=== PATIENT | male | born 1960 | race Caucasian/White ===

== ENCOUNTER 2024-09-12 07:25 | Outpatient (RCR) | payer BC, SELFPAY ==
--- NOTE | 2024-09-12 08:31 | PT.OPEX ---
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 He has full ROM, good strength, able to amb no device, drives. Pt lives with in a multi level home with rails, will have ramped entry by surgery date. Pt was instructed in TKA ex program ( quad sets, ham sets, ankle pumps, heel slides, SAQ, SLR, seated knee flex/ext and hamstring stretches) per protocol to be practiced pre- operatively and for improved learning post-operatively. Pt was instructed in hospital post-op progression in PT, safety, fall prevention. Pt was instructed in positioning in chair, use of ice/polar care, bed, transfer safety, gt safety with walker, stairs, car transfers and outpatient therapy progression.Pt also was instructed in showering, dressing, toilet safety, equipment use. Recommended toilet safety frame, leg lift or strap, shower chair, grab bar for shower. He will progress to OP PT after hospital stay at [facility]. Goals met, pt to dc. Primary Functional Limitations limited amb distance and standing Plan of Care Rehabilitation Potential Good Physical Therapy Goals 1. Within this session: Pt will verbalize understanding of pre-op/post-op safety, mobility and exercises with home program issued and pt returning for ongoing therapy after TKA replacement. Coordination/Communication With Referral Source,Patient Caregiver Treatment Plan/Direct Interventions Gait Training,Manual Therapy, Neuromuscular Re-ed,Self-Care/ Home Management,Therapeutic Activities,Therapeutic Exercises Frequency/Duration 1x Patient Will Be Discharged From Therapy Completion of LTG(s),Skills Plateau,Independent w/HEP, Independently Progressing Evaluation Billing Untimed Code Treatment Minutes 10 PT Eval No Charge Yes Complexity Low Certification Information Initial Certification Date 09/12/24 Ending Certification Date 12/10/24 Provider Signature Required Yes Provider Signature Shows Agreement With POC & Medical Necessity Physician NPI Number Write NPI# Here Physician Comment/Change : Physician Signature & Date Requested Please Sign/Date Here
== END 2024-09-12 14:16 | disposition home or self-care (01) ==
PROVIDERS: Visit Provider Orthopaedic Surgery
DX: M17.0 Bilateral primary osteoarthritis of knee (principal); Z96.653 Presence of artificial knee joint, bilateral; M79.605 Pain in left leg; M79.604 Pain in right leg; Z51.89 Encounter for other specified aftercare
CPT/HCPCS: 97110; 97161

== ENCOUNTER 2024-09-19 16:20 | Inpatient (IN) | payer BC, SELFPAY ==
[2024-09-18] VITALS (25 sets, daily range): BP systolic 97–156; BP diastolic 62–124; PULSE 53–85; RESP 11–18; TEMP 35.8–36.9; O2SAT 89–197; BMI 35.9
--- OUTSIDE RECORDS SUMMARY | 2024-09-18 08:52 | XMS_ITS | Patient Health Record ---
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 Name Role Phone Saeid Love Primary Care Provider [facility] Anahy BURNHAM Unavailable Unavailable Allergies No Known Allergies Reason For Referral No Information Medications Medication SIG (Take, Route, Fr equency, Duration) Notes Start Date End Date Status Pregabalin 25 MG 1 capsule Orally Twi ce a day (then increase to 50mg twice a day) for 15 days 09/20/2022 Active Pregabalin 50 MG 1 capsule Orally (to start on 10/05/22) Twice a day for 15 days 09/20/2022 Active Social History Tobacco Use: Social History Observation Description Date Details (start date - stop date) Never Smoker NA - NA Tobacco Use/Smoking: Question Answer Notes Are you a nonsmoker Alcohol Screen Question Answer Notes Did you have a drink containing alcohol in the p ast year? No Points 0 Interpretation Negative Problems Problem Type SNOMED Code ICD Code Onset Dates Problem Status W/U Status Risk Notes Problem Chronic pain (03179949) Other chronic pain (G89.29) Active confirmed Problem Pain in left foot (216907299380 107) Pain in left foot (M79.672) Active confirmed Plan Of Treatment No Information Insurance Providers Payer Name Payer Address Payer Phone Subscriber Number Group Number Insured Name Patient Relationship to Insured Coverage Start Date Coverage End Date BCBS [place] [address] [address] [place] [address] [phone] [id number] Monse Hawk Spouse - patient is the spouse of the insured Medical (General) History Medical History History ICD Code Claustrophobia Surgical History Surgery Date(Month/Year) Left knee Bariatric surgery cholecystectomy
--- OUTSIDE RECORDS SUMMARY | 2024-09-18 08:52 | XMS_ITS | Data Portability ---
Author Organization [facility]TWAN [facility] [facility] Address [address] [place] [address] Assessment No assessment recorded. Plan of Treatment Reminders Order Date Submit Date Provider Last Modified By Organization Details Last Modified Time Details Appointments None record ed. Lab None record ed. Referral None record ed. Procedures None record ed. Surgeries None record ed. Imaging None record ed. Medication Orders None record ed. Patient TargetsNo targets recorded. Patient Instructions Encounter Date Encounter Id Patient Instructions Last Modified By Organization Details Last Modified Time 04/25/2019 [id number] Reviewed New Patient bariatric healthy eating plan information and eating pattern with patient. Topics discussed were eating 5-6 small meals, start eating within an hour of waking, eat every 3-4 hours, slow down and chew well to pureed consistency, avoid liquids 30min before and after meals, adequate water intake 64-80oz daily, no caffeine, and no carbonated beverages. Reviewed protein powder recs, vitamin/mineral supplement recs, support group times/dates, water and exercise guidelines pre and post op. Encouraged patient to start practicing dietary guidelines to help ease the transition into bariatric lifestyle. Pt verbalized understanding of topics discussed and compliance is expected. Also reviewed the 2 week pre op liquid diet and post op step by step and back to the basics diet information with patient. Advised patient not to abrams diet progression post surgery. Phone consult - Pt is self pay and lives in [facility] Not available 04/25/2019 11:57:26 Pt is a 58year o ld male, here for a nutrition consult prior to weight loss surgery. He is interested in the sleeve gastrectomy surgery at [facility] -self pay. Motivators for weight loss surgery as stated by the patient: become more healthy reverse diabetes reduce blood pressure, lose weight and reduce his pain and be able to have knee surgery. Diet Hx: patient has tried low carb high protein diet, weight watchers, slim fast, diet pills RX and OTC and has seen some weight loss with the plans, but has gained the weight back once he goes off the diet. Contributors to wt gain over the years as stated by pt: he states he was unable to exercise due to severe gout and his lack of exercise, unhealthy food choices and soda. Large portions: yes - patient states he eats big meals Inconsistent meal patterns: He eats regular meals and snacks. Frequent snacking: he states he has a couple snacks a day Frequent selection of high fat foods - he has high fat foods at fast food or restaurants 3x/week. Overconsumption of CHO foods (rice, pasta, breads, potatoes) - he states that he does have potatoes, chips and sandwiches and/or bread daily/often Consumption of sweetened beverages - he drinks juice but has given up sugar drinks since he learned he was Diabetic Typical Diet: patient follows mostly a regular diet at this time Food Allergies/Sensitivi ties: none Meals: 3 a day Snacks: 1-2 a day Beverages: diet tea, diet soda, 12-16oz juice along with around 16+oz water daily Alcohol: none Nicotine: none Meal Preparation: at home by his or himself Meals away from home: 3x/week at restaurant or fast food Patient sleeps about 3-4 hours at night a couple 10-15min naps daily. He rates his stress level as low 24 Hr Diet Recall: (Breakfast): 1.5eggs 2 sausage and 12-16oz juice OR an Botswanan muffin sandwich with egg cheese and pork sausage with juice (Snack): none (Lunch): caned soup with a sandwich turkey and cheese on white with diet tea OR smaller size double cheeseburger with small fries and diet soda (Snack): none (Dinner): grilled pork or salmon with steamed vegetable or salad sometimes with tater tots and diet tea (Snack): popcorn chips or fruit smoothie OTC Medications and Supplements: none Current Exercise/Physical Activity: He is not currently exercising. Advised patient to begin an exercise program and do it most every day for at least 30min to build a habit of regular exercise prior to weight loss surgery. Advised him to be active daily to see even better weight reduction. He reports he is very limited due to his torn meniscus and requires knee surgery but has access to a pool and will start with pool walking and strength training activities * Patient is Diabetic on metformin and glipizide. Advised patient to speak to his PCP about potential medication changes with diet changes. Also recommended he monitor his glucose very closely as he begins the bariatric healthy eating plan. Spent 98 minutes on phone consult today joanne Not available 04/25/2019 12:07:15 10/08/2019 [id number] Reviewed Down to the Basics information pack with patient Discussed the goal to get in 90g of protein daily and advised patient to choose very lean and lean meat options and avoid medium and high fat options. Discussed types of fats and encouraged patient to choose monounsaturated and omega-3 fats and avoid trans-fat and limit saturated/solid fats and to limit to 2 fat choices/day. Spoke about carbohydrate being sugar and that patient should be limiting to 30g daily - spread out through the meals/snacks and not eaten all at one time. Suggested patient choose starchy vegetable like sweet potato, beans, peas, lentils, or butternut squash as the carb choice at meals (1/4c). Spoke about fruit and that some carb should come from fruit and to have it along with protein and not alone. Also reminded patient to use dairy alternative like cashew, almond, or coconut milk and suggested an option to go back to making a protein shake to be able to get enough protein. Discussed reading labels and helped patient know how to find protein and carbs on the label along with how to check on the serving size and that all the numbers on the label are in only 1 serving. Spoke about hidden carbs in sauces and condiments and reminded patient to avoid these added sugars to aid in glucose control. Recommended patient start journaling to keep track better of protein, carb and fluid intake. Advised patient to work on exercising daily for 30 min and to add toning exercises. Patient verbalizes understanding. joanne Not available 10/08/2019 09:52:14 Martínez phone confrence for 2 month post op apt for nutrition evaluation and Down to the basics information Patient had a laparoscopic sleeve gastrectomy on 08/09/19. He has lost 40# since his preop weigh in. He is tolerating food most of the time without issue but does report he is not getting in enough protein at this time. Example of current intake B - Premier shake OR home made shake with fruit S - none or some vegetables L - tomato soup from a can S - 1/2 peanut butter sandwich D - 3-4oz fish with a few bites of broccoli S - sugar free popsicle Encouraged patient to work toward more consistency and balance in his bariatric healthy eating plan and to focus on nutrient dense foods for meals and snacks and to increase protein to goal of 90g. Advised him to drink at least 64oz water - patient states he is getting in that much water. Advised patient to carry water and sip all day to meet fluid goal and to stay hydrated for better digestion. Spoke about making sure he combines protein with vegetable and a small amount of complex carb at meals to help energy level. Advised him to get in more variety in low carb vegetables too. His goals are to eat within an hour of waking and to have a meal or a protein snack every 3-4 hours. Advised each meal and snack need to include protein to be able to meet goal. Suggested he use the protein powder in recipes/foods/drink s or use premade protein shakes if he cannot take in enough protein in food alone. He reports he is NOT taking all V/M supplements as directed from program and is unsure of which ones he needs. I emailed him a copy of the vitamin sheet so that he can be certain his intake is to goal and I have advised him to take these daily as not taking them can result in deficiency and to have levels checked regularly at PCP visits. Remind him to eat consistent meals (ie don? t? skip), chew well, avoid liquids with meals, focus on protein (get 90g total) and vegetables at meals and limit carb to 30g daily. He has not been able to exercise. He states he needs a total knee replacement and cannot walk 30 min. Encouraged him to start with 10 min and also incorporate chair exercises to meet the goal for exercise and to continue to work to be active daily for best weight loss results. Spent 48 minutes in phone consult today. [facility] Not available 10/08/2019 09:57:39 Reason for Referral None Reported. Results Created Date Observation Date Name Description Value Unit Range Abnormal Flag Note LastModifiedBy Organization Detail LastModifiedTime Result Notes None recorded. Problems Name Problem SNOMED Code Status Onset Date Resolution Date Notes Provider Name and Address Organization Details Recorded Time Diabetes mellitus 27718401 Active 2018 Soumya Owusu ([facility], [place] 9 14:04:00 Hypertensive disorder 01816576 Active 2018 Soumya wOusu ([facility] null, [place] 9 14:04:22 Problem Notes None recorded. Medical Equipment None Reported. Allergies No known drug allergies Medications Name Sig Start Date Stop Date Status Note LastModified by Organization Details LastModified Time amoxicillin 500 mg capsule 08/08 completed Not Available Not Available Not Available metformin 500 mg tablet active Not Available Not Available Not Available doxycycline hyclate 100 mg capsule 08/08 completed Not Available Not Available Not Available lisinopril 20 mg-hydrochlo rothiazide 12.5 mg tablet active Not Available Not Available Not Available pravastatin 40 mg tablet active Not Available Not Available Not Available omeprazole 40 mg capsule,luz marina yed release Take 1 capsule every day by oral route. 08/08 completed Not Available Not Available Not Available amoxicillin 875 mg tablet 08/08 completed Not Available Not Available Not Available Zofran ODT 4 mg disintegrati ng tablet Take 1 tablet 3 times a day by oral route as needed. 2018 active Not Available Not Available Not Avai lable hydrocodone 7.5 mg-acetamino phen 325 mg tablet Take 1 tablet every 6 hours by oral route. active Not Available Not Available No t Available montelukast 10 mg tablet 08/08 completed Not Available Not Available Not Available allopurinol 300 mg tablet active Not Available Not Available Not Available glipizide 5 mg tablet active Not Available Not Available No t Available Reglan 5 mg tablet Take 1 tablet 4 times a day by oral route before meals. 2018 active Not Available Not Available Not Avai lable ProAir HFA 90 mcg/actuatio n aerosol inhaler 08/08 completed Not Available Not Available Not Available Vitals Date Recorded Body height Body mass index (BMI) Body weight Provider Name and Address Organization Details Last Updated DateTime 04/25/2019 182.88 cm 56.3 kg/m2 552346.[address] [facility] [address], [place], [address], [facility] 04/25/2019 11:54:08 Date Recorded Body height Body mass index (BMI) Body weight Heart rate Systolic blood pressure Diastolic blood pressure Provider Name and Address Organization Details Last Updated DateTime 9 182.88 cm 54.5 kg/m2 641426. 13 g 118 /min 120 mm[Hg] 72 mm[Hg] Soumya Owusu ([facility]) [facility] 9 14:02:16 Date Recorded Body height Body mass index (BMI) Body weight Provider Name and Address Organization Details Last Updated DateTime 10/08/2019 182.88 cm 49.1 kg/m2 219619.[address] [facility] [address], [place], [address], [facility] 10/08/2019 09:43:12 Social History Question Answer Notes LastModified by Organizat ion Details LastModified Time Tobacco Status Never User [email or web address] Informatio n not available 08/08/2019 Sex: Unknown Functional Status None recorded. Mental Status None recorded. Family History Nothing Reported. Medical History No medical history recorded. Past Encounters Encounter ID Performer Location Encounter Start Date Encounter Closed Date Diagnosis/Indication Diagnosis SNOMED-CT Code Diagnosis ICD10 Code [id number] [address] [facility] [address] [place] [address] 04/25/2019 11:14:02 04/25/2019 11:45:55 Morbid obesity 575753360 E66.01 [id number] Chriss Thomas nd, MD [facility] [address] [place] [address] 08/08/2019 13:51:42 08/08/2019 15:00:24 Morbid obesity 596745725 E66.01 Benign ess ential hypertension 1434160 I10 Type 2 maxi betes mellitus 52567022 E11.[id number] [facility] [address] [place] [address] 10/08/2019 09:05:19 10/08/2019 10:31:09 Morbid obesity 519933949 E66.01 History of bariatric surgical procedure 422499760 Z98.84 Health Concerns Section Related Observation LastModified by Organization Detai ls LastModified Time None Recorded Concern Status LastModified by Organization Details LastModified Time None Recorded Advance Directives Directive None Recorded Payers Encounter Date Sequence Insurance Name Policy Number Policy High Covered Member ID High Member ID Guarantor Name 04/25/2019 [facility] [place] Yatahey Gregg [id number] Yataheyshakira Escobedo 08/08/2019 [facility] [employer] S[employer]F [employer]Y Yatahey Gregg [id number] Yatahey Gregg 10/08/2019 [facility] [employer] SELF PAY Yatahey Gregg [id number] Yataheyshakira Escobedo Notes Date Note Type Note Provider Name a ca Address Organization Details Recorded Time 08/08/2019 text/html HPI Notes: Patient presents for bariatric consult. He denies GERD. He does not have history or family history of blood clots. He does have DM. He has lost 38#s within the last month. He has tried many diets with little to no success. This is actually the fourth time he has prepared for weight loss surgery and the second time with me, as the previous time we had to cancel him due to bronchitis. Since then he is moved to [place] and is not had bronchitis since leaving [place] Chriss Lilly MD [address] [place] [address], [place], [address], [place] 08/08/2019 15:25:49
[2024-09-18] MEDS: LACTATED RINGERS 1000 ML 1,000 ML 100 ML IV (10:00)
[2024-09-18] MEDS: SODIUM CHLORIDE 0.9 % (FLUSH) 10 ML SYRINGE IVF (10:00)
[2024-09-18] MEDS: OXYCODONE (CR) 10 MG TAB.ER.12H PO (10:05)
[2024-09-18] MEDS: ACETAMINOPHEN 500 MG TABLET 1000 MG PO ×2 (10:05→22:12)
[2024-09-18] MEDS: fentaNYL 100 MCG/2 ML inj IVP (10:35)
[2024-09-18] MEDS: MIDAZOLAM HCL 1 MG/ML inj IVP (10:35)
--- NOTE | 2024-09-18 10:51 | SUR.PREOP ---
TIME?OUT:?1035 PT/RN/MDA?VERIFICATION?OF?SURGICAL?SITE,?PROCEDURE,?AND?CONSENT OBTAINED?PRIOR?TO?INVASIVE?PROCEDURE.
--- NOTE | 2024-09-18 11:17 | P.NB_ITS ---
Nerve Block Nerve Block Time Seen by Provider: 10:37 Date Seen: 09/18/24 Type of block requested by surgeon for post-operative analgesia: adductor canal Side: left Time out performed: Yes Verification of patient name: Yes Verification of date of : Yes Site marking: site marked Name of person performing procedure: Shawn Continuous monitoring Was continuous monitoring of O2 sat, B/P, food storeroom clerk, recorded every 15 minutes?: Yes Procedure Checklist: sterile prep, needles and gloves Ultrasound guided. Images saved: Yes Medications given in 5ml increments after negative aspiration: Marcaine %: 0.25 mL: 10 Needle gauge: 20 and Exparel mL: 10 Patient tolerated procedure well: Yes Block Charges Block Charge (with Pro Fee): Femoral Nerve Use of Ultrasound Machine for Block: Yes- US Guidance/pain block
--- NOTE | 2024-09-18 11:17 | W.ANESCHARGE ---
Anesthesia Charges Start Date/Time Anesthesia Start Date: 09/18/24 Anesthesia Start Time: 10:46 Stop Date/Time Anesthesia Stop Date: 09/18/24 Anesthesia Stop Time: 15:13
--- NOTE | 2024-09-18 11:19 | P.NB_ITS ---
Nerve Block Nerve Block Time Seen by Provider: 10:39 Date Seen: 09/18/24 Type of block requested by surgeon for post-operative analgesia: adductor canal Side: right Time out performed: Yes Verification of patient name: Yes Verification of date of : Yes Site marking: site marked Name of person performing procedure: Shawn Continuous monitoring Was continuous monitoring of O2 sat, B/P, chief nurse anesthetist, recorded every 15 minutes?: Yes Procedure Checklist: sterile prep, needles and gloves Ultrasound guided. Images saved: Yes Medications given in 5ml increments after negative aspiration: Marcaine %: 0.25 mL: 10 Needle gauge: 20 and Exparel mL: 10 Patient tolerated procedure well: Yes Block Charges Block Charge (with Pro Fee): Femoral Nerve Use of Ultrasound Machine for Block: Yes- US Guidance/pain block
--- NOTE | 2024-09-18 11:19 | P.NB_ITS ---
Nerve Block Nerve Block Time Seen by Provider: 10:41 Date Seen: 09/18/24 Type of block requested by surgeon for post-operative analgesia: geniculars Side: left Time out performed: Yes Verification of patient name: Yes Verification of date of : Yes Site marking: site marked Name of person performing procedure: Shawn Continuous monitoring Was continuous monitoring of O2 sat, B/P, clinical research monitor, recorded every 15 minutes?: Yes Procedure Checklist: sterile prep, needles and gloves Ultrasound guided. Images saved: Yes Medications given in 5ml increments after negative aspiration: Marcaine %: 0.25 mL: 9 Needle gauge: 25 Patient tolerated procedure well: Yes Block Charges Block Charge (with Pro Fee): Genicular Nerve Block
--- NOTE | 2024-09-18 11:20 | P.NB_ITS ---
Nerve Block Nerve Block Time Seen by Provider: 10:43 Date Seen: 09/18/24 Type of block requested by surgeon for post-operative analgesia: geniculars Side: right Time out performed: Yes Verification of patient name: Yes Verification of date of : Yes Site marking: site marked Name of person performing procedure: Shawn Continuous monitoring Was continuous monitoring of O2 sat, B/P, behavioral health rn, recorded every 15 minutes?: Yes Procedure Checklist: sterile prep, needles and gloves Ultrasound guided. Images saved: Yes Medications given in 5ml increments after negative aspiration: Marcaine %: 0.25 mL: 9 Needle gauge: 25 Patient tolerated procedure well: Yes Block Charges Block Charge (with Pro Fee): Genicular Nerve Block
--- NOTE | 2024-09-18 15:12 | CRLHL7_ITS ---
For Patients: As a result of the Cures Act, medical imaging exams and procedure reports are released immediately into your electronic medical record. You may view this report before your referring provider. If you have questions, please contact your health care provider. INDICATION: Postoperative total knee arthroplasty TECHNIQUE: Knee radiograph 2 views left COMPARISON: 07/04/2024 FINDINGS: Bone: No acute fractures or aggressive bone lesions are identified. Joint: The patient is status post a total knee arthroplasty with patellar resurfacing. No significant knee effusion is seen. Soft tissue: Anterior subcutaneous gas and joint gas are present from recent surgery. No radiopaque foreign bodies are seen. IMPRESSION: 1. There is an unremarkable postoperative appearance of the knee arthroplasty. Dictated by: Parker Small MD @ 09/18/2024 16:14:37 (Electronically Signed)
--- NOTE | 2024-09-18 15:12 | CRLHL7_ITS ---
For Patients: As a result of the Cures Act, medical imaging exams and procedure reports are released immediately into your electronic medical record. You may view this report before your referring provider. If you have questions, please contact your health care provider. Indication: Postop TKA Technique: Two views right knee Findings/Impression: Hardware from a right total knee arthroplasty is in satisfactory position. Bone alignment is normal. No sign of acute fracture. Postop changes are within normal limits. Dictated by Carlos James MD @ 09/19/2024 11:25:17 AM (Electronically Signed)
--- NOTE | 2024-09-18 15:15 | W.ANESCHARGE ---
Anesthesia Charges Start Date/Time Anesthesia Start Date: 09/18/24 Anesthesia Start Time: 10:46 Stop Date/Time Anesthesia Stop Date: 09/18/24 Anesthesia Stop Time: 15:13
--- NOTE | 2024-09-18 15:25 | PM.ORPRC ---
Procedure Note Date of procedure: 09/18/24 Procedure: PREOPERATIVE DIAGNOSIS: Bilateral knee osteoarthritis POSTOPERATIVE DIAGNOSIS: Bilateral knee osteoarthritis NAME OF OPERATION: Bilateral total knee arthroplasty SURGEON: Chinedu Fulton MD INDUSTRIAL ECOLOGY TECHNICIAN: Jackie Chand PA-C ANESTHESIA: Spinal ESTIMATED BLOOD LOSS: 0 mL COMPLICATIONS: None SPECIMENS: None DRAINS: None PREOPERATIVE ANTIBIOTICS: Ancef 2 grams IMPLANTS: Right knee: 1. J&J Attune # 7 posterior stabilized femur 2. # 7 fixed-bearing tibia 3. # 7 posterior stabilized, 7 mm fixed-bearing polyethylene 4. 41 patella Left knee: 1. J&J Attune # 8 posterior stabilized femur 2. # 8 fixed-bearing tibia 3. # 8 posterior stabilized, 5 mm fixed-bearing polyethylene 4. 41 patella INDICATIONS: The patient is a 64-year-old with a longstanding history of severe, unrelenting bilateral knee pain secondary to end-stage (grade IV) right knee osteoarthritis. Despite appropriate nonoperative management, including activity modification, anti-inflammatories, fzqs-sza-dhzfzys pain medication, bracing, physical therapy, and injections they continue to have pain and disability. Operative intervention was offered. The risks, benefits and expected outcomes were discussed in detail. These included but were not limited to: Infection, bleeding, injury to blood vessel or nerve, venous thromboembolism. All questions were answered to their satisfaction. Use of an assistant professor of mathematics was necessary throughout the case for patient positioning and safety, soft tissue retraction, and closure. PROCEDURE: Spinal anesthesia was administered. The patient was placed supine on the operating table. The assistant professor of mathematics made sure the patient was positioned appropriately. Both lower extremities were prepped and draped in the usual sterile fashion. Right knee was approached 1st. The limb was exsanguinated with the Oscar bandage. The pneumatic tourniquet was inflated to 300 mmHg. A standard anterior incision was made with the knee in flexion. Subcutaneous dissection was sharply taken through fascial layer #1. Full-thickness medial and lateral flaps were elevated. The assistant professor of mathematics retracted the soft tissues and protected them throughout the case. A standard subvastus approach was made. The patella was subluxed. The infrapatellar fat pad was debrided. The menisci and cruciate ligaments were sharply d?brided. Marginal osteophytes were d?brided with the rongeur. The drill was used to penetrate the femoral canal. The canal was aspirated and irrigated with pulse lavage. The intramedullary femoral guide was placed for a 5-degree valgus cut, removing 10 mm off the distal femur. The saw was used to make the cut. Whitesides line and the trans epicondylar axis were marked. The femoral sizing guide was pinned onto the distal femur. Three degrees of external rotation nicely parallels the transepicondylar axis. Pins were placed for posterior referencing. The four-in-one cutting guide was pinned onto the distal femur. The anterior, posterior, and chamfer cuts were made. The assistant professor of mathematics protected the collateral ligaments. The box cutting guide was pinned. The box cuts were made. The boxed trial was placed and was an excellent fit. Drill holes for the lugs were made. Attention was then turned to the proximal tibia. The extramedullary tibial guide was placed for a neutral varus/valgus cut with 5 degrees of posterior slope, removing 2 mm based off the medial tibial surface. The assistant professor of mathematics protected the collateral ligaments and the neurovascular bundle. The saw was used to make the cut. Trial components were placed. The knee was nicely balanced in both flexion and extension. The trial components were removed. The tray was placed in appropriate rotation, parallel to our tibial cutting pins. It was pinned by the assistant professor of mathematics and the drill and the punch were used. The tray was removed. The punch was used again. We placed a bone plug in the femoral canal. Attention was then turned to the patella. [place] patellar thickness was 25 mm. The lobster claw resection guide was used with the 9.5 mm ty. The saw was used to make the cut. Drill holes were made by the assistant professor of mathematics. The trial was placed and was an excellent fit. Cancellous surfaces were irrigated with pulse lavage and thoroughly dried by the assistant professor of mathematics. We cemented the tibial component, then the femoral component. We impacted the 8 mm polyethylene onto the tibial tray. The knee was brought into full extension. We then cemented the patellar component. Excessive cement was removed. The cement was allowed to harden. The knee was taken through a range of motion and was found to be nicely balanced in both flexion and extension. The patella tracks centrally. The assistant professor of mathematics did a three minute dilute Betadine solution soak. The assistant professor of mathematics irrigated the wound with 3 liters of normal saline via pulse lavage. The assistant professor of mathematics reapproximated the extensor mechanism with #1 Vicryl in an interrupted ltunin-wx-uecin fashion. The assistant professor of mathematics then ran the extensor mechanism with a #1 PDO Stratafix. The assistant professor of mathematics closed the subcutaneous tissues with a 3-0 Stratafix and the skin with a running 3-0 Stratafix in a subcuticular fashion. Glue was used to seal the skin. The assistant professor of mathematics placed a dry dressing. The tourniquet was released. Attention was then turned to the left knee. The limb was exsanguinated with the Oscar bandage. The pneumatic tourniquet was inflated to 300 mmHg. A standard anterior incision was made with the knee in flexion. Subcutaneous dissection was sharply taken through fascial layer #1. Full-thickness medial and lateral flaps were elevated. The assistant professor of mathematics retracted the soft tissues and protected them throughout the case. A standard subvastus approach was made. The patella was subluxed. The infrapatellar fat pad was debrided. The menisci and cruciate ligaments were sharply d?brided. Marginal osteophytes were d?brided with the rongeur. The drill was used to penetrate the femoral canal. The canal was aspirated and irrigated with pulse lavage. The intramedullary femoral guide was placed for a 5-degree valgus cut, removing 10 mm off the distal femur. The saw was used to make the cut. Whitesides line and the trans epicondylar axis were marked. The femoral sizing guide was pinned onto the distal femur. Three degrees of external rotation nicely parallels the transepicondylar axis. Pins were placed for posterior referencing. The four-in-one cutting guide was pinned onto the distal femur. The anterior, posterior, and chamfer cuts were made. The assistant professor of mathematics protected the collateral ligaments. The box cutting guide was pinned. The box cuts were made. The boxed trial was placed and was an excellent fit. Drill holes for the lugs were made. Attention was then turned to the proximal tibia. The extramedullary tibial guide was placed for a neutral varus/valgus cut with 5 degrees of posterior slope, removing 2 mm based off the medial tibial surface. The assistant professor of mathematics protected the collateral ligaments and the neurovascular bundle. The saw was used to make the cut. Trial components were placed. The knee was nicely balanced in both flexion and extension. The trial components were removed. The tray was placed in appropriate rotation, parallel to our tibial cutting pins. It was pinned by the assistant professor of mathematics and the drill and the punch were used. The tray was removed. The punch was used again. We placed a bone plug in the femoral canal. Attention was then turned to the patella. [place] patellar thickness was 25 mm. The lobster claw resection guide was used with the 9.5 mm ty. The saw was used to make the cut. Drill holes were made by the assistant professor of mathematics. The trial was placed and was an excellent fit. Cancellous surfaces were irrigated with pulse lavage and thoroughly dried by the assistant professor of mathematics. We cemented the tibial component, then the femoral component. We impacted the 5 mm polyethylene onto the tibial tray. The knee was brought into full extension. We then cemented the patellar component. Excessive cement was removed. The cement was allowed to harden. The knee was taken through a range of motion and was found to be nicely balanced in both flexion and extension. The patella tracks centrally. The assistant professor of mathematics did a three minute dilute Betadine solution soak. The assistant professor of mathematics irrigated the wound with 3 liters of normal saline via pulse lavage. The assistant professor of mathematics reapproximated the extensor mechanism with #1 Vicryl in an interrupted gopujk-gh-qlyqx fashion. The assistant professor of mathematics then ran the extensor mechanism with a #1 PDO Stratafix. The assistant professor of mathematics closed the subcutaneous tissues with a 3-0 Stratafix and the skin with a running 3-0 Stratafix in a subcuticular fashion. Glue was used to seal the skin. The assistant professor of mathematics placed a dry dressing. Sponge and needle counts were correct x2. The patient tolerated the procedure well. There were no apparent complications. They were carefully transferred to the hospital bed and taken to the postanesthesia care unit in satisfactory condition. PLAN: The patient will be mobilized with physical therapy. Aspirin will be used for DVT prophylaxis. They will be discharged to home once medically appropriate.
[2024-09-18] MEDS: fentaNYL 100 MCG/2 ML inj 50 MCG IVP ×2 (15:39→15:56)
--- NOTE | 2024-09-18 16:13 | SUR.PHASEI ---
Patient came to PACU awake and restless. He stated no pain or nausea. O2 mask applied with 6liter of oxygen for O2 sat in the upper 80s. Patient wanting to lay on his sides.
--- NOTE | 2024-09-18 16:14 | SUR.PHASEI ---
1539 Patient given fentanyl for pain control. He is now stating his pain is a 7 out of 10 in his knees.
--- NOTE | 2024-09-18 16:15 | SUR.PHASEI ---
Patient stated he was cold, full body bear hugger applied to warm patient. When asked about pain level at 1555 he stated his pain level was an 8 out of 10. Fentanyl given.
--- NOTE | 2024-09-18 16:16 | SUR.PHASEI ---
Second dose of fentanyl helped relieve pain to a level 5. O2 levels without oxygen were maintained above 90% on room air for the second portion of time in PACU. At 1600 patient met anesthesia discharge criteria from PACU.
[2024-09-18] MEDS: HYDROmorphone 0.5 mg/0.5 ml inj IVP ×3 (16:40→18:52)
[2024-09-18] MEDS: LACTATED RINGERS 1000 ML 1,000 ML 75 ML IV (16:56)
[2024-09-18] MEDS: CEFAZOLIN 2 GM in 0.9 % SODIUM CHLORIDE Mini-bag 100 ML IVPB (17:35)
--- NOTE | 2024-09-18 20:09 | PM.IMCN1 ---
Date of Consult Patient: Armaan Patient Consult date: 09/18/24 Requesting Physician: Orthopedics Primary Care Provider: Sinai aTriq DO Consult Narrative Narrative: Kenn Escobedo is a 64 year old male admitted to the hospital for bilateral knee arthroplasty. Procedure performed by Dr. Fulton. No operative complications. He has requested consultation for management of medical problems after surgery. Patient reports doing well at the time I see him. He is having manageable posterior knee pain. Preoperatively reported doing well. There were no concerns identified with preoperative evaluation. No recent illness or injury. History of morbid obesity. Five years ago he underwent sleeve gastrectomy and subsequently lost 200 lb. Prior to the weight loss he was evaluated for sleep apnea but was unable to even tolerate having the test done. He may still have some sleep apnea but would not tolerate CPAP and likely his sleep apnea as improved if not resolved with weight loss. Also previously had hypertension and diabetes which resolved with weight loss. He has had no previous problems with surgery or anesthesia, bleeding or clotting. Review of Systems Narrative: No recent illness or injury [facility] [place] Medical History (Updated 09/18/24 @ 20:27 by Terrell Khan MD) History of type 2 diabetes mellitus ?Z86.39 - Personal history of other endocrine, nutritional and metabolic disease (ICD-10) History of hypertension ?Z86.79 - Personal history of other diseases of the circulatory system (ICD-10) History of obstructive sleep apnea ?Z86.69 - Personal history of other diseases of the nervous system and sense organs (ICD-10) Obesity (BMI 30-39.9) ?E66.9 - Obesity, unspecified (ICD-10) Osteoarthritis of left knee ?M17.12 - Unilateral primary osteoarthritis, left knee (ICD-10) Surgical History (Updated 09/18/24 @ 20:21 by Terrell Khan MD) History of bilateral knee arthroplasty ?Z96.653 - Presence of artificial knee joint, bilateral (ICD-10) History of cholecystectomy ?Z90.49 - Acquired absence of other specified parts of digestive tract (ICD-10) S/P left knee arthroscopy ?Z98.890 - Other specified postprocedural states (ICD-10) H/O bariatric surgery (08/22/19) ?Z98.84 - Bariatric surgery status (ICD-10) Family History (Updated 11/12/24 @ 20:22 by Terrell Khan MD) Sister Obesity High blood pressure Social History (Updated 09/18/24 @ 20:24 by Terrell Khan MD) Narrative: He lives in [place] with his . He does not smoke. He does not drink alcohol. They live in a house with 5 steps to get in and 14 to get from the lower level to the bedroom. He does plan to sleep in the living room on the lower level when he initially goes home. 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 What is your current living situation?: I presently have a place to live Problems where you live: no known problems In the past 12 months, utilities in danger of being shut off: no In the past 12 mos, have been you worried that your food would run out before you had money to buy more?: never true In the past 12 mos, the food you bought just didn't last and you didn't have money to buy more?: never true Smoking Status: Never smoker Do you use any of these nicotine containing products: None Second hand tobacco smoke exposure: No How often do you have a drink containing alcohol: never AUDIT-C Alcohol total score: 0 Non-prescribed substance use: denies use Caffeine: Yes (occasionally) How often does anyone, including family, friends and others, physically hurt you: never How often does anyone, including family, friends and others, insult or talk down to you: never How often does anyone, including family, friends and others, threaten you with harm: never How often does anyone, including family, friends and others, scream or curse at you: never Meds Home Medications and Allergies Allergies Allergy/AdvReac Type Severity Reaction Status Date / Time NSAIDS (Non-Steroidal AdvReac Verified 09/18/24 09:15 Anti-Inflamma Exam Narrative: Exam Narrative: He is alert and appears in no distress. Oropharynx is normal. Neck is supple without mass or adenopathy. Respirations are clear to auscultation. Breathing is unlabored. Cardiovascular: S1, S2, regular rate and rhythm. No murmur gallop or rub. Abdomen: Bowel sounds active. Abdomen is soft without tenderness or mass. Extremities with intact pulses and sensation he moves all 4 extremities well. Const: Vital Signs, click to edit/add: Vital Signs - 24 hr 09/18/24 10:19 09/18/24 10:35 09/18/24 10:40 Temperature 97.8 F Pulse Rate 59 L 58 L 57 L Respiratory Rate 16 16 16 Blood Pressure 135/83 139/84 123/75 Pulse Oximetry 100 100 100 Oxygen Delivery Me thod Room Air Nasal Cannula Nasal Cannula Oxygen Flow Rate 2 2 Fraction of Inspir ed Oxygen 09/18/24 15:09 09/18/24 15:15 09/18/24 15:20 Temperature 97.4 F L Pulse Rate 64 65 64 Respiratory Rate 13 12 12 Blood Pressure 121/86 112/70 108/65 Pulse Oximetry 89 100 100 Oxygen Delivery Me thod Aerosol Mask Aerosol Mask Aerosol Mask Oxygen Flow Rate 6 6 6 Fraction of Inspir ed Oxygen 95 100 100 09/18/24 15:25 09/18/24 15:30 09/18/24 15:35 Temperature Pulse Rate 53 L 61 60 Respiratory Rate 12 11 L 11 L Blood Pressure 111/97 H 126/105 H 127/94 H Pulse Oximetry 197 H 96 99 Oxygen Delivery Me thod Aerosol Mask Room Air Room Air Oxygen Flow Rate 6 Fraction of Inspir ed Oxygen 100 96 09/18/24 15:45 09/18/24 15:55 09/18/24 16:00 Temperature 97.3 F L Pulse Rate 60 67 67 Respiratory Rate 16 16 16 Blood Pressure 127/94 H 138/115 H 97/73 Pulse Oximetry 95 97 97 Oxygen Delivery Me thod Room Air Room Air Room Air Oxygen Flow Rate Fraction of Inspir ed Oxygen 09/18/24 16:15 09/18/24 16:20 09/18/24 16:30 Temperature 96.7 F L 96.5 F L 97 F L Pulse Rate 72 73 80 Respiratory Rate 16 16 16 Blood Pressure 130/117 H 130/117 H 156/124 H Pulse Oximetry 96 97 97 Oxygen Delivery Me thod Room Air Room Air Room Air Oxygen Flow Rate Fraction of Inspir ed Oxygen 09/18/24 16:45 09/18/24 17:00 09/18/24 17:15 Temperature 97.3 F L 97.6 F Pulse Rate 72 74 71 Respiratory Rate 16 16 16 Blood Pressure 119/62 113/80 112/62 Pulse Oximetry 97 97 99 Oxygen Delivery Me thod Room Air Room Air Room Air Oxygen Flow Rate Fraction of Inspir ed Oxygen 09/18/24 18:00 09/18/24 18:30 09/18/24 19:00 Temperature 97.8 F 98 F 97.9 F Pulse Rate 85 81 80 Respiratory Rate 16 16 18 Blood Pressure 122/77 118/73 119/78 Pulse Oximetry 94 100 100 Oxygen Delivery Me thod Room Air Room Air Room Air Oxygen Flow Rate Fraction of Inspir ed Oxygen Documenting provider has reviewed patient's vital signs: yes Assessment and Plan Assessment and plan (1) History of bilateral knee arthroplasty: Status: Acute (2) Obesity (BMI 30-39.9): Problem comment: Status post sleeve gastrectomy 2019 with subsequent 200 lb of weight loss. Now BMI of 35.9 Status: Acute Plan Patient admitted to the hospital for surgery, pain management, therapy and monitoring and management of chronic medical problems and postoperative complications. Total Time Spent Total Time Spent: 45 minutes discussing with patient and other providers management of postoperative care and management of medical problems
[2024-09-18] MEDS: SENNOSIDES 1 TAB TABLET 2 TAB PO (22:12)
[2024-09-18] MEDS: ASPIRIN 81 MG TABLET EC PO (22:12)
[2024-09-18] MEDS: OXYCODONE 5 MG TABLET PO (22:13)
[2024-09-19] VITALS (9 sets, daily range): BP systolic 95–113; BP diastolic 55–92; PULSE 69–94; RESP 14–18; TEMP 36.5–37.1; O2SAT 92–99
[2024-09-19] MEDS: CEFAZOLIN 2 GM in 0.9 % SODIUM CHLORIDE Mini-bag 100 ML IVPB (01:11)
[2024-09-19] MEDS: OXYCODONE 5 MG TABLET PO ×4 (02:46→12:14)
[2024-09-19] MEDS: HYDROmorphone 0.5 mg/0.5 ml inj IVP ×4 (03:28→23:41)
[2024-09-19] MEDS: ACETAMINOPHEN 500 MG TABLET 1000 MG PO ×4 (05:04→22:49)
--- NOTE | 2024-09-19 05:07 | PC.NURSE ---
Shift note: Pt is doing well ambulating with A1, walker and GB. At 0230, pt complained of terrible pain of 10/10. Medication given, pt walked to the hallway and transferred to the recliner. Ice pack applied. Dressing to both knee clean, dry and intact.
[2024-09-19 06:28] LABS: Basophils Absolute Auto 0.02 K/uL (0.00-0.30); Basophils Percent Auto 0.2 % (0.0-3.0); Hematocrit 41.1 % (37.0-53.0); Immature Granulocytes Abs Auto 0.01 K/uL (0.00-0.30); Immature Granulocytes Pct Auto 0.1 %; Lymphocytes Percent Auto 14.4 % (20-44); Mean Corpuscular HGB Conc 32 gm/dL (32-36); Mean Corpuscular Hemoglobin 30 pg (26-34); Mean Corpuscular Volume 93 fL (80-100); Monocytes Percent Auto 9.4 % (0.0-11.0); Neutrophils Percent Auto 75.9 % (42.0-72.0); Platelet Count* 207 K/uL (140-440); RDW Coefficient of Variation % 13.6 % (11.5-15.5); Red Blood Count 4.41 m/uL (4.30-5.90); Slide Review Reflex No; White Blood Count* 10.66 K/uL (4.50-11.00)
[2024-09-19 06:40] LABS: Sodium* 135 mmol/L (135-149)
[2024-09-19 06:44] LABS: Blood Urea Nitrogen* 19 mg/dL (7-30); Creatinine* 0.8 mg/dL (0.5-1.5); Est. Creatinine Clearance* 81.58; Estimated Glomerular Filt Rate 100 ml/min
[2024-09-19 06:49] LABS: INR 1.22 (0.91-1.10); Prothrombin Time 16.2 Seconds
--- NOTE | 2024-09-19 08:19 | PM.ORPN ---
Subjective Subjective Time Seen by Provider: 07:30 Date Seen: 09/19/24 Principal diagnosis: Status post bilateral knee replacement Interval history: Kenn is comfortable this morning. He states he has no pain. He has been ambulating about the hallways. He got about 4 hours of sleep. He denies nausea, vomiting. Ortho Exam Narrative Exam Narrative: Alert and oriented x3. Patient is in no acute distress. Converses without labored breathing. Hearing is grossly intact. Ambulates with a walker. Examination of bilateral lower extremities shows dressings are intact. Warmth about the knees. Mild left knee medial erythema with warmth. Right knee no erythema. No sign of infection. Calves are soft and nontender. CMS intact bilateral lower extremities. He is able to straight leg raise bilateral. Const Vital Signs, click to edit/add: Vital Signs - 24 hr 09/18/24 10:19 09/18/24 10:35 09/18/24 10:40 Temperature 97.8 F Pulse Rate 59 L 58 L 57 L Pulse Rate [Apical] Pulse Rate [Pulse Oximeter] Respiratory Rate 16 16 16 Blood Pressure 135/83 139/84 123/75 Blood Pressure [Right Arm] Pulse Oximetry 100 100 100 Oxygen Delivery Method Room Air Nasal Cannula Nasal Cannula Oxygen Flow Rate 2 2 Fraction of Inspired Oxygen 09/18/24 15:09 09/18/24 15:15 09/18/24 15:20 Temperature 97.4 F L Pulse Rate 64 65 64 Pulse Rate [Apical] Pulse Rate [Pulse Oximeter] Respiratory Rate 13 12 12 Blood Pressure 121/86 112/70 108/65 Blood Pressure [Right Arm] Pulse Oximetry 89 100 100 Oxygen Delivery Method Aerosol Mask Aerosol Mask Aerosol Mask Oxygen Flow Rate 6 6 6 Fraction of Inspired Oxygen 95 100 100 09/18/24 15:25 09/18/24 15:30 09/18/24 15:35 Temperature Pulse Rate 53 L 61 60 Pulse Rate [Apical] Pulse Rate [Pulse Oximeter] Respiratory Rate 12 11 L 11 L Blood Pressure 111/97 H 126/105 H 127/94 H Blood Pressure [Right Arm] Pulse Oximetry 197 H 96 99 Oxygen Delivery Method Aerosol Mask Room Air Room Air Oxygen Flow Rate 6 Fraction of Inspired Oxygen 100 96 09/18/24 15:45 09/18/24 15:55 09/18/24 16:00 Temperature 97.3 F L Pulse Rate 60 67 67 Pulse Rate [Apical] Pulse Rate [Pulse Oximeter] Respiratory Rate 16 16 16 Blood Pressure 127/94 H 138/115 H 97/73 Blood Pressure [Right Arm] Pulse Oximetry 95 97 97 Oxygen Delivery Method Room Air Room Air Room Air Oxygen Flow Rate Fraction of Inspired Oxygen 09/18/24 16:15 09/18/24 16:20 09/18/24 16:30 Temperature 96.7 F L 96.5 F L 97 F L Pulse Rate 72 73 80 Pulse Rate [Apical] Pulse Rate [Pulse Oximeter] Respiratory Rate 16 16 16 Blood Pressure 130/117 H 130/117 H 156/124 H Blood Pressure [Right Arm] Pulse Oximetry 96 97 97 Oxygen Delivery Method Room Air Room Air Room Air Oxygen Flow Rate Fraction of Inspired Oxygen 09/18/24 16:45 09/18/24 17:00 09/18/24 17:15 Temperature 97.3 F L 97.6 F Pulse Rate 72 74 71 Pulse Rate [Apical] Pulse Rate [Pulse Oximeter] Respiratory Rate 16 16 16 Blood Pressure 119/62 113/80 112/62 Blood Pressure [Right Arm] Pulse Oximetry 97 97 99 Oxygen Delivery Method Room Air Room Air Room Air Oxygen Flow Rate Fraction of Inspired Oxygen 09/18/24 18:00 09/18/24 18:30 09/18/24 19:00 Temperature 97.8 F 98 F 97.9 F Pulse Rate 85 81 80 Pulse Rate [Apical] Pulse Rate [Pulse Oximeter] Respiratory Rate 16 16 18 Blood Pressure 122/77 118/73 119/78 Blood Pressure [Right Arm] Pulse Oximetry 94 100 100 Oxygen Delivery Method Room Air Room Air Room Air Oxygen Flow Rate Fraction of Inspired Oxygen 09/18/24 20:00 09/18/24 21:00 09/18/24 22:00 Temperature 98.5 F Pulse Rate 80 74 76 Pulse Rate [Apical] Pulse Rate [Pulse Oximeter] Respiratory Rate 18 18 18 Blood Pressure 113/81 110/74 113/81 Blood Pressure [Right Arm] Pulse Oximetry 99 100 98 Oxygen Delivery Method Room Air Room Air Room Air Oxygen Flow Rate Fraction of Inspired Oxygen 09/18/24 23:00 09/18/24 23:00 09/19/24 02:50 Temperature 98.5 F 97.7 F Pulse Rate Pulse Rate [Apical] Pulse Rate [Pulse Oximeter] 74 75 Respiratory Rate 18 18 Blood Pressure Blood Pressure [Right Arm] 122/69 106/92 H Pulse Oximetry 98 98 99 Oxygen Delivery Method Room Air Room Air Room Air Oxygen Flow Rate Fraction of Inspired Oxygen 09/19/24 08:11 09/19/24 08:12 Temperature 98 F Pulse Rate Pulse Rate [Apical] 74 Pulse Rate [Pulse Oximeter] 74 Respiratory Rate 18 18 Blood Pressure Blood Pressure [Right Arm] 103/57 L Pulse Oximetry 99 99 Oxygen Delivery Method Room Air Room Air Oxygen Flow Rate Fraction of Inspired Oxygen Assessment and Plan Assessment and plan (1) Status post bilateral knee replacements: Problem details: 09/18/2024 Status: Acute Assessment and Plan: Plan for discharge is today to home if they meet discharge criteria. DVT prophylaxis includes aspirin 81 mg twice daily x1 month, Compression stockings as needed for swelling. Frequent ambulation, every hour throughout the day. Remove dressing in 1 week. Observe wound and phone Orthopedics with any questions or concerns Return to clinic in 1 week for a wound check Return to clinic in 6 weeks with surgeon Minimize narcotic use. Wean off and discontinue soon as possible. Activities as tolerated. No strenuous activity. Outpatient physical therapy as scheduled. Ice and elevate the operative extremity. No restriction on ice. Kenn states Dr. Fulton did not speak to his post surgery. He is notified. He will speak with her.
[2024-09-19] MEDS: ASPIRIN 81 MG TABLET EC PO ×2 (08:29→21:29)
[2024-09-19] MEDS: SENNOSIDES 1 TAB TABLET 2 TAB PO ×2 (08:29→21:29)
[2024-09-19] MEDS: hydrOXYzine pamoate 25 MG CAPSULE PO (12:44)
[2024-09-19] MEDS: HYDROmorphone 2 MG TABLET PO ×2 (16:38→22:49)
--- NOTE | 2024-09-19 17:28 | PC.NURSE ---
Shift Summary: Patient pleasant and cooperative. Up with 2 assist, walker and gait belt. C/o increased pain throughout shift, heard moaning/crying. Give 10mg PRN oxycodone q2h with some relief, Ana SALMERON updated and changed orders to PRN dilaudid PO see MAR. Dressings dry and intact. Tolerating regular diet. Given first dose of PO dilaudid this evening, on continuous pulse ox to monitor for drop in o2 sat. Ice packs and elevating extremities.
--- NOTE | 2024-09-19 23:00 | PC.NURSE ---
Pt is experiencing ongoing pain control problems. 0.5mg Dilaudid given IVP this evening as pt rated breakthrough bilateral knee pain 9/10. He is also receiving PO Dilaudid q6h. He became irritated with more than one staff member encouraging active ice placement. Pt states the ice hurts and has not utilized them for than 15 minutes this shift. Bilateral knees do have a moderate amount of non pitting edema and pt was educated on the benefits of cold therapy for swelling. Pt encouraged to drink fluids/water and he has been doing so independently. VS WNL & LS COA. Surgical dressings C,D,&I. He ambulates with assist x1 with walker and GB, although it takes 2-3 people to get him positioned in bed. Pt states he plans to discharge home with his tomorrow.
[2024-09-20] MEDS: HYDROmorphone 0.5 mg/0.5 ml inj IVP (02:26)
[2024-09-20 02:29] VITALS: BP 106/59; PULSE 72; RESP 16; TEMP 36.3; O2SAT 97
--- NOTE | 2024-09-20 05:14 | PC.NURSE ---
Pt responded well to this RN. Pain rated 8/10. Pt stated he was sorry for giving other nurses hard time. Pt able to ambulate to BR with assist. Afebrile. Wounds CDI.
[2024-09-20 05:31] VITALS: TEMP 36.3
[2024-09-20] MEDS: ACETAMINOPHEN 500 MG TABLET 1000 MG PO ×2 (05:31→10:40)
[2024-09-20] MEDS: HYDROmorphone 2 MG TABLET PO ×2 (05:32→11:39)
[2024-09-20 07:11] VITALS: O2SAT 93
[2024-09-20 07:23] LABS: Basophils Absolute Auto 0.05 K/uL (0.00-0.30); Basophils Percent Auto 0.5 % (0.0-3.0); Eosinophils Absolute Auto 0.42 K/uL (0.00-0.50); Eosinophils Percent Auto 4.3 % (0.0-7.0); Hematocrit 38.3 % (37.0-53.0); Hemoglobin* 12.3 gm/dL (13.5-17.5); Immature Granulocytes Abs Auto 0.03 K/uL (0.00-0.30); Immature Granulocytes Pct Auto 0.3 %; Lymphocytes Absolute Auto 2.11 K/uL (0.90-2.90); Lymphocytes Percent Auto 21.6 % (20-44); Mean Corpuscular HGB Conc 32 gm/dL (32-36); Mean Corpuscular Hemoglobin 30 pg (26-34); Mean Corpuscular Volume 93 fL (80-100); Neutrophils Absolute Auto 5.91 K/uL (1.7-7.0); Neutrophils Percent Auto 60.3 % (42.0-72.0); Platelet Count* 167 K/uL (140-440); RDW Coefficient of Variation % 13.7 % (11.5-15.5); White Blood Count* 9.79 K/uL (4.50-11.00)
[2024-09-20 07:26] LABS: Slide Review Reflex No
[2024-09-20 07:44] LABS: Sodium* 134 mmol/L (135-149)
[2024-09-20 07:45] VITALS: BP 122/56; PULSE 77; RESP 14; TEMP 36.9; O2SAT 95
[2024-09-20 07:47] LABS: Creatinine* 0.8 mg/dL (0.5-1.5); Est. Creatinine Clearance* 81.58; Estimated Glomerular Filt Rate 100 ml/min
[2024-09-20 07:48] LABS: Blood Urea Nitrogen* 20 mg/dL (7-30)
[2024-09-20] MEDS: SENNOSIDES 1 TAB TABLET 2 TAB PO (09:16)
[2024-09-20] MEDS: ASPIRIN 81 MG TABLET EC PO (09:16)
[2024-09-20 10:45] VITALS: BP 116/64; PULSE 87; RESP 16; TEMP 36.6; O2SAT 95
[2024-09-20 11:37] LABS: INR 1.25 (0.91-1.10); Prothrombin Time 16.5 Seconds
--- NOTE | 2024-09-20 13:14 | PC.NURSE ---
Discharge: Patient pleasant and cooperative. Up with one assist, walker and gait belt. Able to get self in and out chair. Pain better managed today. Vitals stable and WNL. Discharge instructions given and discussed next available time for pain medications once home. Questions answered as needed. Dressings over knees clean, dry and intact. IV removed with catheter intact. Discharged @ 1305 via wheelchair, discharged to home.
--- NOTE | 2024-10-02 17:20 | PM.ORPN ---
Subjective Subjective Date Seen: 09/20/24 Principal diagnosis: Status post bilateral knee replacement Interval history: Feeling better Ortho Exam Narrative Exam Narrative: dressings dry CMS nl Assessment and Plan Assessment and plan (1) Status post bilateral knee replacements: Problem details: 09/18/2024, Donaldo Status: Acute Plan Assessment: doing well after B TKA Plan: DC home
== END 2024-09-20 13:05 | disposition home or self-care (01) | DRG 302 ==
LOC: OR 16:31 → MEDSURG 16:31
PROVIDERS: Admitting Provider Orthopaedic Surgery; PCP Family Medicine; Visit Provider Orthopaedic Surgery
PROC: 0SRC0JZ Replacement of Right Knee Joint with Synthetic Substitute, Open Approach (ICD-10-PCS; CPT 27447; principal; 2024-09-18 11:00)
DX: M17.0 Bilateral primary osteoarthritis of knee (principal); G89.18 Other acute postprocedural pain; Z86.39 Personal history of other endocrine, nutritional and metabolic disease; Z86.79 Personal history of other diseases of the circulatory system; Z86.69 Personal history of other diseases of the nervous system and sense organs; Z90.49 Acquired absence of other specified parts of digestive tract; Z98.84 Bariatric surgery status; E66.9 Obesity, unspecified; Z68.35 Body mass index [BMI] 35.0-35.9, adult
CPT/HCPCS: 01402; 36415; 64447; 64454; 73560; 76942; 82565; 84132; 84295; 84520; 85025; 85610; 97110; 97116; 97161; 97165; 97530; 97535; A9270; C1776; C9290; J0665; J0690; J1100; J1171; J2250; J2371; J2405; J2704; J3010; J3490; J7120

== ENCOUNTER 2025-10-24 10:05 | Outpatient (CLI) | payer BC, SELFPAY | END 2025-10-24 10:06 | disposition home or self-care (01) | LOC: NFLDREF 10-28 14:27 | PROVIDERS: PCP Family Medicine; Referring Provider Family Medicine; Visit Provider Orthopaedic Surgery | DX: M25.561 Pain in right knee (principal); M25.562 Pain in left knee; G89.28 Other chronic postprocedural pain; Z96.653 Presence of artificial knee joint, bilateral; M13.162 Monoarthritis, not elsewhere classified, left knee; M13.161 Monoarthritis, not elsewhere classified, right knee | CPT/HCPCS: 85651; 86140 ==